=== PATIENT | female | born 1950 | race Caucasian/White ===

== ENCOUNTER 2017-01-31 10:29 | Day surgery (SDC) | payer MEDICARE, OTHER ==
[~2017-01-31] VITALS: Ht 172.7 cm; Wt 101.2 kg
== END 2017-01-31 16:25 | disposition short-term general hospital (02) ==
LOC: SURGOP 10:29
PROC: 0QTL0ZZ Resection of Right Tarsal, Open Approach (ICD-10-PCS; principal; 2017-01-31)
PROC: 0LQN0ZZ Repair Right Lower Leg Tendon, Open Approach (ICD-10-PCS; 2017-01-31)
DX: M76.61 Achilles tendinitis, right leg (principal); M65.871 Other synovitis and tenosynovitis, right ankle and foot; J45.909 Unspecified asthma, uncomplicated; E78.5 Hyperlipidemia, unspecified; K21.9 Gastro-esophageal reflux disease without esophagitis; E66.9 Obesity, unspecified; M15.9 Polyosteoarthritis, unspecified; Z68.33 Body mass index [BMI] 33.0-33.9, adult; Z88.5 Allergy status to narcotic agent; Z88.8 Allergy status to other drugs, medicaments and biological substances; Z79.82 Long term (current) use of aspirin; Z79.899 Other long term (current) drug therapy; Z90.49 Acquired absence of other specified parts of digestive tract; Z90.710 Acquired absence of both cervix and uterus; Z90.722 Acquired absence of ovaries, bilateral
CPT/HCPCS: C9290; J0330; J0690; J1100; J2250; J2405; J2765; J3010